=== PATIENT | female | born 1990 | race African-American/Black ===

== ENCOUNTER 2017-09-12 04:17 | Inpatient (IN) | payer OTHER ==
[~2017-09-12] VITALS: Ht 180.3 cm; Wt 71.9 kg
[2017-09-12] VITALS (20 sets, daily range): BP systolic 106–158; BP diastolic 55–95; PULSE 113–140; RESP 16–32; TEMP 96.3–98.7; O2SAT 92–100
[~2017-09-12 04:17] MED LIST: NOVO7030P2 SQ; NOVOLOGP2 SQ
[2017-09-12] MEDS ORDERED: ONDANSETRON ODT 4 MG TAB PO ONE (05:00)
[2017-09-12] MEDS ORDERED: LIDOCAINE VISCOUS 2% SOLN 15 ML UDC SWISH-SWAL ONE (05:00)
[2017-09-12] MEDS ORDERED: ALUMINUM/MAGNESIUM/SIMETH 30 ML CUP PO ONE (05:00)
[2017-09-12 05:28] LABS: AUTOMATED NEUTROPHIL # 13.3 TH/MM3 (1.8-7.7); BASOPHIL # 0.1 TH/MM3 (0-0.2); BASOPHIL % 0.9 % (0.0-2.0); EOSINOPHIL % 0.1 % (0.0-4.0); HEMATOCRIT 40.1 % (35.0-46.0); HEMOGLOBIN 12.3 GM/DL (11.6-15.3); LYMPH % 7.4 % (9.0-44.0); LYMPHOCYTE # 1.1 TH/MM3 (1.0-4.8); MEAN CELL VOLUME 93.2 FL (80.0-100.0); MEAN CORPUSCULAR HEMOGLOBIN 28.5 PG (27.0-34.0); MEAN CORPUSCULAR HGB CONC 30.6 % (32.0-36.0); MEAN PLATELET VOLUME 8.2 FL (7.0-11.0); MONO % 3.4 % (0.0-8.0); MONOCYTE # 0.5 TH/MM3 (0-0.9); NEUT % 88.2 % (16.0-70.0); PLATELET COUNT 451 TH/MM3 (150-450); RED CELL DISTRIBUTION WIDTH 15.4 % (11.6-17.2)
[2017-09-12 05:42] LABS: ALBUMIN 4.3 GM/DL (3.4-5.0); ALT (GPT) 39 U/L (10-53); AST (GOT) 27 U/L (15-37); BICARBONATE 6.2 MEQ/L (21.0-32.0); CALCIUM 9.7 MG/DL (8.5-10.1); CHLORIDE 94 MEQ/L (98-107); CREATININE 1.55 MG/DL (0.50-1.00); GLOMERULAR FILTRATION RATE 48 ML/MIN (>89); SODIUM (NA) 132 MEQ/L (136-145)
[2017-09-12 06:03] LABS: ALKALINE PHOSPHATASE 198 U/L (45-117); BLOOD UREA NITROGEN 36 MG/DL (7-18); TOTAL BILIRUBIN ADULT 0.8 MG/DL (0.2-1.0); TOTAL PROTEIN 9.3 GM/DL (6.4-8.2)
[2017-09-12 06:04] LABS: GLUCOSE,RANDOM 853 MG/DL (74-106)
--- NOTE | 2017-09-12 06:12 | PD ---
HPI Chief Complaint: GI Complaint Time Seen by Provider: 04:42 Travel History International Travel<30 days: No Contact w/Intl Traveler<30days: No Traveled to known affect area: No History of Present Illness HPI Patient reports not feeling well has abdomen pain has a history of DKA is an insulin-dependent diabetic PFSH Past Medical History Hx Anticoagulant Therapy: No Anemia: Yes Cancer: No Cardiovascular Problems: No Chemotherapy: No Cerebrovascular Accident: No Diabetes: Yes Patient Takes Glucophage: No Diminished Hearing: No Endocrine: Yes Gastrointestinal Disorders: Yes (GASTROPARESIS) GERD: No Genitourinary: No Hepatitis: No Hiatal Hernia: No Immune Disorder: No Implanted Vascular Access Dvce: No Musculoskeletal: No Neurologic: Yes Psychiatric: No Reproductive: No Respiratory: No Immunizations Current: Yes Thyroid Disease: No Ulcer: No Influenza Vaccination: No ?: Not LMP: AUGUST 2017 : 1 Para: 0 Miscarriage: 1 : 0 Dilation and Curettage (D&C): Yes (SEPTEMBER 2011) Past Surgical History Abdominal Surgery: Yes (GALL BLADDER) AICD: No Arteriovenous Shunt: No Cardiac Surgery: No Cholecystectomy: Yes Ear Surgery: No Endocrine Surgery: No Eye Surgery: No Genitourinary Surgery: No Gynecologic Surgery: Yes (D/C) Hysterectomy: No Insulin Pump: No Joint Replacement: No Neurologic Surgery: No Oral Surgery: No Pacemaker: No Thoracic Surgery: No Other Surgery: Yes (gallbladder /d&c) Social History Alcohol Use: No Tobacco Use: No Substance Use: No Allergies-Medications (Allergen,Severity, Reaction): Coded Allergies: *MDRO Multi-Drug Resistant Organism (Verified Adverse Reaction, Unknown, 02/05/16) MRSA Screen Positive - 11/03/2015, 11/22/15, 02/03/16 Reported Meds & Prescriptions Reported Meds & Active Scripts Active Novolog Inj (Insulin Aspart) 1,000 Unit/10 Ml Vial 1-9 Units SQ ACHS Max dose at bedtime:( )units; sugars less than 70,(0)units; sugars 150-199,(1) unit; sugars 200-249,(3) units; sugars 250-299,(5) units; sugars 300-349,(7) units; sugars greater than 349,(9) units Novolin 70-30 Inj (Insulin Human Isoph/Insulin Regular) 1,000 Unit/10 Ml Vial 15 Units SQ BID Data Data Last Documented VS Vital Signs Date Time Temp Pulse Resp B/P (MAP) Pulse Ox O2 Delivery O2 Flow Rate FiO2 09/12/17 05:45 137 26 137/78 (97) 99 Room Air 09/12/17 04:20 96.3 Orders Orders Al-Mag Hy-Si 40-40-4 Mg/Ml Liq (Mag-Al P (09/12/17 05:00) Lidocaine 2% Viscous (Xylocaine 2% Visco (09/12/17 05:00) Ondansetron Odt (Zofran Odt) (09/12/17 05:00) Complete Blood Count With Diff (09/12/17 04:51) Comprehensive Metabolic Panel (09/12/17 04:51) Lipase (09/12/17 04:51) Alcohol (Ethanol) (09/12/17 04:51) Beta Hydroxybutyrate (Acetone) (09/12/17 04:51) Insulin Human Regular Inj (Novolin R Inj (09/12/17 06:15) Sodium Chlor 0.9% 1000 Ml Inj (Ns 1000 M (09/12/17 06:15) Sodium Chlor 0.9% 1000 Ml Inj (Ns 1000 M (09/12/17 06:15) Lactic Acid (09/12/17 06:11) Blood Gas Venous (Vbg) (09/12/17 06:11) Fentanyl Inj (Fentanyl Inj) (09/12/17 06:30) Potassium Chlor 20 Meq Premix (Kcl 20 Me (09/12/17 06:30) Insulin Human R Drip (For Ed) (Novolin-R (09/12/17 06:30) Labs Laboratory Tests Test 09/12/17 05:05 09/12/17 06:12 White Blood Count 15.0 TH/MM3 Red Blood Count 4.30 MIL/MM3 Hemoglobin 12.3 GM/DL Hematocrit 40.1 % Mean Corpuscular Volume 93.2 FL Mean Corpuscular Hemoglobin 28.5 PG Mean Corpuscular Hemoglobin Concent 30.6 % Red Cell Distribution Width 15.4 % Platelet Count 451 TH/MM3 Mean Platelet Volume 8.2 FL Neutrophils (%) (Auto) 88.2 % Lymphocytes (%) (Auto) 7.4 % Monocytes (%) (Auto) 3.4 % Eosinophils (%) (Auto) 0.1 % Basophils (%) (Auto) 0.9 % Neutrophils # (Auto) 13.3 TH/MM3 Lymphocytes # (Auto) 1.1 TH/MM3 Monocytes # (Auto) 0.5 TH/MM3 Eosinophils # (Auto) 0.0 TH/MM3 Basophils # (Auto) 0.1 TH/MM3 CBC Comment DIFF FINAL Differential Comment Blood Urea Nitrogen 36 MG/DL Creatinine 1.55 MG/DL Random Glucose 853 MG/DL Total Protein 9.3 GM/DL Albumin 4.3 GM/DL Calcium Level 9.7 MG/DL Alkaline Phosphatase 198 U/L Aspartate Amino Transf (AST/SGOT) 27 U/L Alanine Aminotransferase (ALT/SGPT) 39 U/L Total Bilirubin 0.8 MG/DL Sodium Level 132 MEQ/L Potassium Level 4.9 MEQ/L Chloride Level 94 MEQ/L Carbon Dioxide Level 6.2 MEQ/L Anion Gap 32 MEQ/L Estimat Glomerular Filtration Rate 48 ML/MIN Lipase 141 U/L Ethyl Alcohol Level LESS THAN 3 MG/DL B-Hydroxybutyrate 12.41 MMOL/L Blood Gas Puncture Site LINE Venous Blood pH 7.09 Venous Blood Partial Pressure CO2 13 mmHg Venous Blood Partial Pressure O2 75 mmHg Venous Blood HCO3 4 mmol/L Venous Blood Oxygen Saturation 86 % Venous Blood Oxygen Content 13.6 Vol % Venous Blood Base Excess -24.5 mmol/L Blood Gas Inspired Oxygen 21 % Rohit Jamison MD September 12, 2017 06:12
[2017-09-12] MEDS ORDERED: SODIUM CHLOR 0.9% 1000 ML INJ 1,000 ML IV ONE ×2 (06:15)
[2017-09-12] MEDS ORDERED: INSULIN HUMAN REGULAR 1,000 UNITS/10 ML VIAL IV PUSH ONE (06:15)
[2017-09-12] MEDS ORDERED: [UNRECOGNIZED DRUG - OTHER] IV ONE (06:30)
[2017-09-12] MEDS ORDERED: POTASSIUM CHLOR 20 MEQ PREMIX 100 ML IV ONE (06:30)
[2017-09-12] MEDS: DEXT 5%-NACL 0.9% 1000 ML INJ 1,000 ML IV SCH ×2 (07:20→12:10)
[2017-09-12] MEDS ORDERED: CHLORHEXIDINE GLUCONATE 2 % 1 PACK (2 CLOTHS) TOP PRN ×2 (07:30)
[2017-09-12] MEDS ORDERED: SODIUM PHOSPHATE INJ 15 MMOL in SODIUM CHLORIDE 0.9% INJ 100 ML IV PRN (07:30)
[2017-09-12] MEDS ORDERED: INSULIN REGULAR (IV INFUSION) 100 UNITS in SODIUM CHLORIDE 0.9% INJ 99 ML IV PRN (07:30)
[2017-09-12] MEDS ORDERED: RESP: ALBUTEROL 2.5 MG/IPRATROPIUM 0.5 MG NEB (PRN) INH (07:30)
[2017-09-12] MEDS ORDERED: NURSING INFORMATION XX SCH ×2 (07:30)
[2017-09-12] MEDS ORDERED: POTASSIUM CHLOR 20 MEQ PREMIX 100 ML IV PRN ×6 (07:30)
[2017-09-12] MEDS ORDERED: POTASSIUM CHLOR 40 MEQ PREMIX 100 ML IV PRN ×2 (07:30)
[2017-09-12] MEDS ORDERED: SODIUM BICARBONATE 8.4% SOLN 50 MEQ/50 ML VIAL IV PUSH PRN ×2 (07:30)
[2017-09-12] MEDS ORDERED: ONDANSETRON ODT 4 MG TAB PO PRN ×2 (09:30→14:15)
[2017-09-12] MEDS: FAMOTIDINE 20 MG TAB PO SCH ×2 (10:04→20:07)
--- NOTE | 2017-09-12 10:04 | MH ---
cc: Enrique Lewis MD DATE OF ADMISSION: 09/12/2017 HISTORY OF PRESENT ILLNESS: The patient is a 27-year-old female with a past medical history of diabetes mellitus, who presented to [facility] ED with a history of intractable nausea and vomiting associated with abdominal pain. On arrival to the ER, she was tachypneic and tachycardic. She was found to have a blood sugar of 853 and her laboratory data were compatible with diabetic ketoacidosis. The patient had anion gap of 32 with a bicarbonate of 6.2 and the beta hydroxybutyrate 12.41. In the ED, she was given 2 liters of crystalloids, 6 units IV insulin and was placed on an insulin drip. The patient denies any cough or any constitutional symptoms. PAST MEDICAL HISTORY: Significant for type 1 diabetes mellitus diagnosed at age 13, gastroparesis, anemia, sickle cell trait. PAST SURGICAL HISTORY: Previous cholecystectomy, previous D and C for miscarriage in 2011. REPORTED MEDICATIONS: NovoLog insulin and Novolin 70/30 insulin 15 units sub-Q b.i.d. SOCIAL HISTORY: Nonsmoker, nondrinker. FAMILY HISTORY: Hypertension, diabetes mellitus runs in the family. REVIEW OF SYSTEMS: As per HPI. Rest of review of systems limited. PHYSICAL EXAMINATION: GENERAL: A 27-year-old female lying in bed in no acute respiratory distress with intractable nausea and vomiting. VITAL SIGNS: Afebrile, pulse of 120, respiratory rate of 18, blood pressure 116/67, saturation 99% on room air. HEENT: Atraumatic, normocephalic. Pupils are equal, round, reactive to light and accommodation. Extraocular muscles intact. Conjunctivae pink with anicteric sclerae. Oral mucosa within normal. NECK: Supple. No JVD, adenopathy, or thyromegaly. Trachea in the midline. CARDIOVASCULAR: Tachycardic. Normal S1 and S2. No murmurs, rubs or gallops noted. PULMONARY: Bilateral equal entry. No rales or wheezing. ABDOMEN: Soft, nontender. No distention. Positive bowel sounds. EXTREMITIES: No cyanosis, clubbing, edema. NEUROLOGIC: No focal sensory deficit. LABORATORY DATA: Sodium 132, potassium 4.9, chloride 94, CO2 6.2, BUN 36, creatinine 1.55, glucose 853. Lactic acid 3.8. WBC 15, hemoglobin 12, hematocrit 40, platelet count 451, beta hydroxybutyrate 12.41. IMPRESSION: 1. Diabetic ketoacidosis. 2. Anion gap metabolic acidosis. 3. Acute kidney injury. 4. Lactic acidemia. 5. Leukocytosis, likely stress related. 6. Intractable nausea and vomiting. 7. Dehydration. RECOMMENDATIONS: 1. Monitor neuro status closely. Avoid any sedatives. 2. Oxygen p.r.n. to maintain sats above 92%. 3. Bronchodilators on a p.r.n. basis. 4. Monitor heart rate and blood pressure closely and maintain MAP greater than 65 mmHg. Serial lactic acid. Monitoring until clear. 5. Continue with IV hydration per DKA protocol. She received 2 liters of crystalloids in the ED. 6. Monitor renal function, I's and O's and electrolyte replacement per protocol. Monitor electrolytes q. 6 hours, beta hydroxybutyrate q. 12 hour. Continue with NS at 250 mL an hour. Once blood sugar falls less than 250, we will switch to D5 NS at 200 mL an hour per protocol. 7. Keep n.p.o. for now and place on Pepcid for GI prophylaxis and Zofran p.r.n. for nausea and vomiting. 8. Monitor for signs of infection which include fever and WBC. Panculture if spikes a fever. Obtain a urinalysis with culture if indicated. 9. Continue with insulin drip per DKA protocol until anion gap closes and follow electrolytes closely as stated above. 10. GI prophylaxis with Pepcid and DVT prophylaxis with SCDs and heparin sub-Q. Further recommendations will be based on the hospital course. MD FLOR Handley/DL , 09:25 AM , 10:02 AM
[2017-09-12] MEDS ORDERED: PROMETHAZINE INJ 25 MG/ML VIAL IM ONE ×2 (10:30→14:15)
[2017-09-12] MEDS: SODIUM CHLOR 0.9% 1000 ML INJ 1,000 ML IV SCH ×4 (10:35→19:20)
[2017-09-12] MEDS ORDERED: ONDANSETRON HCL 4 MG/2 ML VIAL ONE (14:13)
--- NOTE | 2017-09-12 14:28 | EKG ---
Date Performed: 09/12/2017 Time Performed: 05:40:46 PTAGE: 27 years EKG: SINUS TACHYCARDIA BORDERLINE RIGHT AXIS DEVIATION ABNORMAL RHYTHM ECG PREVIOUS TRACING 11/22/2015 11.12 Since the previous tracing, no significant change noted DOCTOR: Scottie Cheney Interpretating Date/Time 09/12/2017 14:26:47
[2017-09-12 15:07] LABS: BICARBONATE 14.9 MEQ/L (21.0-32.0); CALCIUM 8.5 MG/DL (8.5-10.1); CREATININE 1.25 MG/DL (0.50-1.00); MAGNESIUM 2.5 MG/DL (1.5-2.5); PHOSPHORUS 2.9 MG/DL (2.5-4.9)
[2017-09-12] MEDS: MORPHINE SULFATE 4 MG/ML INJ IV PUSH PRN ×2 (15:23→19:27)
[2017-09-12 19:24] LABS: BICARBONATE 20.1 MEQ/L (21.0-32.0); CALCIUM 8.6 MG/DL (8.5-10.1); CREATININE 1.16 MG/DL (0.50-1.00); MAGNESIUM 2.2 MG/DL (1.5-2.5); PHOSPHORUS 2.5 MG/DL (2.5-4.9)
[2017-09-12] MEDS: HEPARIN SODIUM - SQ 10,000 UNITS/ML VIAL SQ SCH (19:30)
[2017-09-12] MEDS ORDERED: DEXTROSE 50% IN WATER 50 ML SYRINGE ONE (20:30)
[2017-09-12] MEDS ORDERED: GLUCAGON 1 MG/ML VIAL OTHER PRN (21:15)
[2017-09-12] MEDS: INSULIN DETEMIR 100 UNITS/ML VIAL SQ SCH (21:15)
[2017-09-12] MEDS ORDERED: DC previous DKA orders (HMC 1917) ONE (21:15)
[2017-09-12] MEDS ORDERED: DC Insulin drip 2 hrs post basal insulin dose ONE (21:15)
[2017-09-12] MEDS ORDERED: DEXTROSE 50% IN WATER 50 ML VIAL(D50) IV PUSH PRN (21:15)
[2017-09-13] VITALS (22 sets, daily range): BP systolic 102–147; BP diastolic 60–96; PULSE 83–110; RESP 9–25; TEMP 98.2–99; O2SAT 44–100
[2017-09-13 01:12] LABS: BICARBONATE 21.7 MEQ/L (21.0-32.0); CALCIUM 7.8 MG/DL (8.5-10.1); CREATININE 0.98 MG/DL (0.50-1.00); MAGNESIUM 1.9 MG/DL (1.5-2.5); PHOSPHORUS 1.8 MG/DL (2.5-4.9)
[2017-09-13] MEDS ORDERED: CHLORHEXIDINE GLUCONATE 2 % 1 PACK (2 CLOTHS) TOP SCH (04:00)
[2017-09-13] MEDS: CHLORHEXIDINE GLUCONATE 2 % 1 PACK (2 CLOTHS) TOP SCH ×2 (04:00→23:01)
[2017-09-13 04:11] LABS: BASOPHIL # 0.1 TH/MM3 (0-0.2); BASOPHIL % 0.4 % (0.0-2.0); EOSINOPHIL % 0.2 % (0.0-4.0); HEMATOCRIT 31.6 % (35.0-46.0); HEMOGLOBIN 10.5 GM/DL (11.6-15.3); LYMPH % 20.1 % (9.0-44.0); LYMPHOCYTE # 3.5 TH/MM3 (1.0-4.8); MEAN CELL VOLUME 84.3 FL (80.0-100.0); MEAN CORPUSCULAR HGB CONC 33.2 % (32.0-36.0); MEAN PLATELET VOLUME 7.2 FL (7.0-11.0); MONO % 10.3 % (0.0-8.0); MONOCYTE # 1.8 TH/MM3 (0-0.9); PLATELET COUNT 404 TH/MM3 (150-450); RED BLOOD COUNT 3.75 MIL/MM3 (4.00-5.30); RED CELL DISTRIBUTION WIDTH 14.4 % (11.6-17.2); WHITE BLOOD COUNT 17.4 TH/MM3 (4.0-11.0)
[2017-09-13 04:40] LABS: ALKALINE PHOSPHATASE 130 U/L (45-117); ALT (GPT) 29 U/L (10-53); AST (GOT) 16 U/L (15-37); BICARBONATE 21.6 MEQ/L (21.0-32.0); BLOOD UREA NITROGEN 18 MG/DL (7-18); CALCIUM 7.8 MG/DL (8.5-10.1); CHLORIDE 112 MEQ/L (98-107); CREATININE 0.91 MG/DL (0.50-1.00); GLOMERULAR FILTRATION RATE 88 ML/MIN (>89); GLUCOSE,RANDOM 92 MG/DL (74-106); SODIUM (NA) 142 MEQ/L (136-145); TOTAL BILIRUBIN ADULT 0.7 MG/DL (0.2-1.0); TOTAL PROTEIN 6.9 GM/DL (6.4-8.2)
[2017-09-13] MEDS: FAMOTIDINE 20 MG TAB PO SCH ×2 (07:51→20:46)
[2017-09-13] MEDS: MORPHINE SULFATE 4 MG/ML INJ IV PUSH PRN ×3 (07:51→18:13)
[2017-09-13] MEDS: INSULIN DETEMIR 100 UNITS/ML VIAL SQ SCH ×2 (07:57→20:46)
[2017-09-13] MEDS: INSULIN ASPART 1,000 UNITS/10 ML VIAL SQ SCH ×3 (08:00→17:00)
[2017-09-13] MEDS: INSULIN ASPART SUPPLEMENTAL SCALE SQ SCH ×4 (08:00→20:46)
[2017-09-13] MEDS: HEPARIN SODIUM - SQ 10,000 UNITS/ML VIAL SQ SCH ×2 (08:08→18:12)
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
[2017-09-13] MEDS ORDERED: POTASSIUM PHOSPHATE MONOBASIC 500 MG TAB PO ONE (08:45)
[2017-09-13 10:54] LABS: BICARBONATE 19.5 MEQ/L (21.0-32.0); CALCIUM 7.9 MG/DL (8.5-10.1); CREATININE 1.13 MG/DL (0.50-1.00); MAGNESIUM 1.8 MG/DL (1.5-2.5); PHOSPHORUS 2.1 MG/DL (2.5-4.9)
[2017-09-13] MEDS: ACETAMINOPHEN/HYDROcodone 325 MG/7.5 MG TAB PO PRN ×2 (11:38→18:13)
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
[2017-09-14] MEDS: ACETAMINOPHEN/HYDROcodone 325 MG/7.5 MG TAB PO PRN ×4 (02:30→20:58)
[2017-09-14 03:45] VITALS: BP 121/74; PULSE 85; RESP 18; TEMP 98.3; O2SAT 100
[2017-09-14] MEDS: HEPARIN SODIUM - SQ 10,000 UNITS/ML VIAL SQ SCH ×2 (07:30→16:56)
[2017-09-14 08:00] VITALS: BP 128/74; PULSE 82; RESP 16; TEMP 98.2; O2SAT 95
[2017-09-14] MEDS: FAMOTIDINE 20 MG TAB PO SCH ×2 (08:51→20:59)
[2017-09-14] MEDS: INSULIN DETEMIR 100 UNITS/ML VIAL SQ SCH ×2 (08:57→20:59)
[2017-09-14] MEDS: INSULIN ASPART SUPPLEMENTAL SCALE SQ SCH ×4 (08:58→20:59)
[2017-09-14] MEDS: INSULIN ASPART 1,000 UNITS/10 ML VIAL SQ SCH ×3 (08:58→16:56)
[2017-09-14 10:00] LABS: CALCIUM 8.2 MG/DL (8.5-10.1); CREATININE 0.78 MG/DL (0.50-1.00); MAGNESIUM 1.9 MG/DL (1.5-2.5); PHOSPHORUS 2.5 MG/DL (2.5-4.9)
[2017-09-14 12:00] VITALS: BP 128/90; PULSE 99; RESP 16; TEMP 98.1; O2SAT 100
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
[2017-09-14 16:00] VITALS: BP 115/77; PULSE 114; RESP 16; TEMP 98; O2SAT 99
[2017-09-14 19:06] VITALS: BP 117/78; PULSE 80; RESP 17; TEMP 98.3; O2SAT 98
[2017-09-14 23:42] VITALS: BP 120/66; PULSE 91; RESP 18; TEMP 98.8; O2SAT 98
[2017-09-15] MEDS: ACETAMINOPHEN 1000 MG/100 ML VIAL IV PRN ×2 (02:00→07:36)
[2017-09-15 03:00] VITALS: BP 127/73; PULSE 93; RESP 18; TEMP 97.6; O2SAT 98
[2017-09-15] MEDS: CHLORHEXIDINE GLUCONATE 2 % 1 PACK (2 CLOTHS) TOP SCH (03:34)
[2017-09-15] MEDS: FAMOTIDINE 20 MG TAB PO SCH (07:36)
[2017-09-15] MEDS: ACETAMINOPHEN/HYDROcodone 325 MG/7.5 MG TAB PO PRN ×2 (07:37→12:11)
[2017-09-15] MEDS: HEPARIN SODIUM - SQ 10,000 UNITS/ML VIAL SQ SCH (07:40)
[2017-09-15] MEDS: INSULIN DETEMIR 100 UNITS/ML VIAL SQ SCH (07:42)
[2017-09-15] MEDS: INSULIN ASPART SUPPLEMENTAL SCALE SQ SCH ×2 (07:42→12:00)
[2017-09-15 07:44] VITALS: BP 132/86; PULSE 100; RESP 19; TEMP 97.9; O2SAT 100
[2017-09-15] MEDS: INSULIN ASPART 1,000 UNITS/10 ML VIAL SQ SCH ×2 (07:53→12:00)
[2017-09-15 12:13] VITALS: BP 117/77; PULSE 84; RESP 18; TEMP 98.4; O2SAT 99
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
[2017-09-15] MEDS ORDERED: INSU100I16 SQ (14:00)
[2017-09-15] MEDS ORDERED: INSU1INJ14 SQ (14:01)
[2017-09-15] MEDS ORDERED: FAMO20TA2 PO (14:02)
--- NOTE | 2017-09-15 14:08 | HHI.DCPOC ---
Discharge Care Plan Diagnosis: (1) DKA (diabetic ketoacidoses) (2) Type 1 diabetes mellitus (3) TIFFANY (acute kidney injury) Goals to Promote Your Health - Please call and schedule followup appt with Dr. Palomino to be seen in the next 2 -3 days - Please call to schedule a followup appt with your PCP, Dr. Reyes Rodriguez - Patient is to resume her home dose of Tresiba 20 units in the morning and Fiasp 7 units TID Directions to Meet Your Goals Take your medications as prescribed Follow your dietary instruction Follow activity as directed Keep your appointments as scheduled Take your immunizations and boosters as scheduled If your symptoms worsen call your PCP, if no PCP go to Urgent Care Center or Emergency Room Smoking is Dangerous to Your Health. Avoid second hand smoke Call the 24-hour hour crisis hotline for domestic abuse at Aubrie Neri September 15, 2017 14:08
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
[2017-09-15 19:20] LABS: HEMOGLOBIN A1C 10.4 % (4.3-6.0)
[2017-09-16] MEDS ORDERED: INSULIN DETEMIR 100 UNITS/ML VIAL SQ SCH (09:00)
== END 2017-09-15 17:13 | disposition home or self-care (01) | DRG 638 ==
LOC: NEPE 04:17 → NEDA 06:55 → HIMW 09:00 → N06A 09-13 21:38
PROVIDERS: ADMIT Internal Medicine Critical Care Medicine; ATTEND Internal Medicine Critical Care Medicine
DX: E10.10 Type 1 diabetes mellitus with ketoacidosis without coma (principal); N17.9 Acute kidney failure, unspecified; K31.84 Gastroparesis; E10.43 Type 1 diabetes mellitus with diabetic autonomic (poly)neuropathy; E86.0 Dehydration; D64.9 Anemia, unspecified; D72.829 Elevated white blood cell count, unspecified; D57.3 Sickle-cell trait; Z79.4 Long term (current) use of insulin
CPT/HCPCS: 36600; 72100; 80048; 80053; 80307; 82010; 82805; 82947; 82948; 83036; 83605; 83690; 83735; 84100; 84132; 85025; 87641; 93005; 96365; 96368; 96375; J0131; J1644; J1815; J1817; J2270; J2405; J2550; J3480; J7030; J7042